=== PATIENT | male | born 1940 | race Caucasian/White ===

== ENCOUNTER → 2016-08-18 | Outpatient (CLI) | payer MEDICARE ==
[~2016-08-18] MED LIST: ASPIRIN 81MG TA81 MG PO; ASPIRIN ADULT L81 M2; ELIQUIS2.5 MG PO; LISINOPRIL 10MG10 MG PO; LISINOPRIL 5MG T5 MG NG; LOVASTATIN40 MG PO; NITROGLYCERIN0.4 MG SL; PRAVACHOL 20MG.20 MG PO; PRAVASTATIN 20M20 MG PO; PRILOSEC OTC20 MG; PROTONIX 40MG T40 MG PO; RANITIDINE 150150 MG PO; RANITIDINE HCL150 MG PO; [UNRECOGNIZED DRUG - OTHER] PO
[2016-08-18 10:38] LABS: LYMPH # 2.2 K/mm3 (0.7-4.5); LYMPH % 32.9 % (10-50)
[2016-08-18 10:41] LABS: HEMOGLOBIN 15.2 g/dL (14.1-18.0)
[2016-08-18 11:42] LABS: BUN 12 mg/dL (7-18)
[2016-08-18 11:50] LABS: GFR (ESTIMATED) 54 ML/MIN (>60)
[2016-08-19 06:38] LABS: Testosterone 383 ng/dL (348-1197)
== END ==
LOC: LAB 10:28
PROVIDERS: Internal Medicine Adolescent Medicine
DX: E29.1 Testicular hypofunction (principal); I82.503 Chronic embolism and thrombosis of unspecified deep veins of lower extremity, bilateral; M31.6 Other giant cell arteritis; E78.5 Hyperlipidemia, unspecified

== ENCOUNTER → 2016-11-29 | Outpatient (CLI) | payer MEDICARE ==
--- NOTE | 2016-11-29 10:43 | CARDIOVASCULAR REPORT ---
"Venous Exam Indications: 729.81 Swelling of limb. 729.5 Pain in limb. IMPRESSIONS 1. There is no evidence of significant Reflux. 2. No evidence of deep or superficial vein thrombosis involving the left lower extremity History: Left lower extremity pain. PMH: Deep vein thrombosis. Labs, prior tests, procedures, and surgery: Coronary artery bypass grafting. Saphenous vein graft. Labs, prior tests, procedures, and surgery: Coronary artery bypass grafting. Saphenous vein graft. Left lower extremity venous duplex evaluation. Doppler flow study including spectral analysis, color and hinkle scale imaging. Location: Vascular laboratory. Patient status: Outpatient. Tables: Venous flow and imaging: + + + + |Location |Overall |Flow properties | + + + + |Left common femoral |Patent |Normal phasicity; | | | |spontaneous; normal | | | |augmentation; compressible; | | | |no reflux | + + + + |Left saphenofemoral junction|Patent |Compressible | + + + + |Left profunda femoral |Patent |Compressible | + + + + |Left femoral |Patent |Normal phasicity; | | | |spontaneous; normal | | | |augmentation; compressible | + + + + |Left greater saphenous |Likely absent|Normal phasicity; | | | |spontaneous; no | | | |augmentation; compressible | + + + + |Left popliteal |Patent |Normal phasicity; | | | |spontaneous; normal | | | |augmentation; compressible | + + + + |Left posterior tibial |Patent |Compressible | + + + + |Left peroneal |Patent |Compressible | + + + + |Left gastrocnemius |Patent |Compressible | + + + + |Left soleal |Patent |Compressible | + + + + (Report amended ) Electronically signed by: Nadeem Carr [id number]"
== END ==
LOC: RT 09:55
DX: M79.662 Pain in left lower leg (principal); M79.89 Other specified soft tissue disorders

== ENCOUNTER → 2017-04-13 | Outpatient (CLI) | payer MEDICARE ==
--- NOTE | 2017-04-14 16:51 | RADIOLOGY REPORT PS360 ---
ECHO ADULT PROCEDURE: INDICATIONS FOR THE TEST: Chest pain X COPD Heart Murmur Tobacco Smoking Palpitations Fatigue Syncope Edema Hypertension Diabetes Mellitus Rheumatic Fever SOB DOEXObesity HyperlipidemiaX Family History HD Additional History CABG,CAD PATIENT INFORMATION HEIGHT: 68 WEIGHT:190 GENDER: Male B/P:120/80 2-D/M-MODE INTERPRETATION: 2-D MEASUREMENTS OBSERVED VALUES IN CMS Right Ventricular Dimension (RVDd) 2.5 Interventricular Septum (Thickness)(IVsd) .9 Left Ventricular Internal Dimensions(LVIDd) 5.7 Left Ventricular Posterior Wall (Thickness)(LVPWd) .8 Aortic Root 3.3 Aortic Cusp Separation 2.0 Left Atrial Dimensions (LAD) 3.5 2D 1. Left atrium is qualitatively mildly enlarged, left ventricle is normal size, there is no concentric left ventricular hypertrophy, visually estimated ejection fraction 50%, there appears to be hypokinesis involving the basal septum and inferobasal wall, endocardial surface of poorly visualized. 2. The right atrium is normal size, right ventricle is qualitatively mildly enlarged with normal contractility. 3. The aortic valve is minimally thickened and fibrosed. 4. The mitral and tricuspid valve leaflets are minimally thickened. 5. The pulmonic valve is poorly visualized. 6. No significant pericardial effusion noted. DOPPLER INTERROGATION: Doppler interrogation of the aortic, mitral and tricuspid valves show presence of mild mitral and tricuspid regurgitation, tricuspid and jet velocity is insufficient for calculation of the right ventricular systolic pressure, grade 1 diastolic dysfunction seen without tissue Doppler evidence of raised left atrial pressure. CONCLUSION: 1. Technically difficult study because of the patient's factor and poor acoustic windows, endocardial surfaces are poorly visualized. 2. Mildly enlarged left atrium, normal left ventricular size, there is no concentric left ventricular hypertrophy, visually estimated ejection fraction 50% with segmental wall motion abnormality described above. Grade 1 diastolic dysfunction seen without tissue Doppler evidence of raised left atrial pressure. 3. Mildly enlarged right ventricle with normal contractility. 4. Mild mitral and tricuspid regurgitation. 5. No significant pericardial effusion noted.
== END ==
LOC: RT 13:38
DX: R07.9 Chest pain, unspecified (principal); R06.09 Other forms of dyspnea